=== PATIENT | female | born 1980 | race Caucasian/White ===

== ENCOUNTER 2020-04-09 09:27 | Day surgery (SDC) | payer BC ==
[2020-04-03 17:53] VITALS: BMI 22.3
[2020-04-09 19:57] VITALS: BP 112/65; PULSE 56; TEMP 97.8
== END 2020-04-09 19:57 | disposition home or self-care (01) ==
LOC: FASU 09:27
PROVIDERS: ATTEND Plastic Surgery
PROC: 090K0ZZ Alteration of Nasal Mucosa and Soft Tissue, Open Approach (ICD-10-PCS; principal; 2020-04-09)
DX: M95.0 Acquired deformity of nose (principal)
CPT/HCPCS: 84703; 94760